=== PATIENT | female | born 1950 | race Caucasian/White ===

== ENCOUNTER 2016-06-07 21:18 | Emergency (ER) | payer OTHER ==
[~2016-06-07] VITALS: Ht 170.2 cm; Wt 74.6 kg
[2016-06-07 21:22] VITALS: TEMP 36.9; Ht 170.2 cm; Wt 74.6 kg
[2016-06-07 22:24] LABS: PARTIAL THROMBOPLASTIN RATIO 1.2; PROTHROMBIN TIME (PATIENT) 10.8 SECONDS (9.0-12.0)
[2016-06-07 22:35] LABS: BUN/CREATININE RATIO 25.7 (10-20); CALCIUM 10.3 mg/dl (8.5-10.1); CREATININE 1.2 mg/dl (0.60-1.20)
[2016-06-07 22:38] LABS: ALB/GLOB RATIO 1.3 (0.9-2)
[2016-06-07 22:48] LABS: HEMATOCRIT 45.1 % (37-47); MEAN CELL VOLUME 91.1 fL (80-100); MEAN CORPUSCULAR HEMOGLOBIN 30.7 pg (25-34); MEAN CORPUSCULAR HGB CONC 33.7 g/dl (32-36); MEAN PLATELET VOLUME 10.2 fL (7.4-10.4); PLATELET COUNT 207 K/uL (130-400); RED BLOOD COUNT 4.95 M/uL (4.2-5.4); WHITE BLOOD COUNT 18.95 K/uL (4.8-10.8)
[2016-06-07] MEDS ORDERED: CHOL2000 PO (23:17)
[2016-06-07] MEDS ORDERED: MULT-506 PO (23:17)
[2016-06-08 00:31] LABS: BASO ABS # 0.19 K/uL (0-0.2); COMPLETE YES; LYMPH ABS # 14.02 K/uL (1.2-3.4)
[2016-06-08 01:23] VITALS: BP 182/95; PULSE 76; O2SAT 97
--- NOTE | 2016-06-08 03:22 | EMERGENCY ROOM VISIT NOTE ---
History Report prepared by Ubaldo: Bacilio Kathleen Under the Supervision of: Dr. Shemar Alonzo M.D. First contact with patient: 22:01 Chief Complaint: ARM PAIN Stated Complaint: LEFT ARM NUMBNESS,DISCOVERED BUBBLE UNDER SKIN History of Present Illness The patient is a 66 year old female who presents to the Emergency Room with complaints of intermittent left arm pain starting earlier today. The patient states that earlier today three of four times it felt like there was a tourniquet squeezing her arm. The patient states that later she felt a bubble on her left arm. She states that she has a Von Willebrand's disease, so she was worried about a blood clot. Additionally, she states that she has been urinating a lot at night recently. Pt denies LOC, headache, fevers, chills, diaphoresis, visual changes, neck pain, chest pain, breathing difficulties, nausea, vomiting, abdominal pain, back pain, melena, hematochezia, urinary symptoms, numbness, weakness, lymphadenopathy, rash, or other complaints. Source of History: patient Onset: earlier today Position: arm (left) Quality: other (squeezing) Timing: intermittent Note: Associated Symptoms: Bubble on her arm Review of Systems See HPI for pertinent positives and negatives. A total of ten systems were reviewed and were otherwise negative. Past Medical & Surgical Medical Problems: (1) Von Willebrand disease Surgical Problems: (1) History of hysterectomy (2) Hx of cholecystectomy (3) S/P tonsillectomy Family History Cancer Diabetes mellitus Heart disease Hypertension Social History Smoking Status: Never Smoker Marital Status: Housing Status: lives with family Occupation Status: retired Current/Historical Medications Scheduled Cholecalciferol (Vitamin D3), 1 CAP PO DAILY Multivitamin (Multivitamin), 1 TAB PO DAILY Allergies Coded Allergies: Cat Dander (Verified Allergy, Intermediate, ASTHMATIC SX, 06/07/16) Penicillins (Verified Allergy, Intermediate, RASH, 06/07/16) Physical Exam Vital Signs Date Time Temp Pulse Resp B/P Pulse Ox O2 Delivery O2 Flow Rate FiO2 06/08/16 01:23 76 16 182/95 97 Room Air 06/07/16 23:14 68 16 196/93 98 Room Air 06/07/16 21:22 36.9 87 16 209/108 98 Room Air Physical Exam GENERAL: Awake, alert, well-appearing, in no distress HENT: Normocephalic, atraumatic. Oropharynx unremarkable. EYES: Normal conjunctiva. Sclera non-icteric. NECK: Supple. No nuchal rigidity. FROM. No JVD. RESPIRATORY: Clear to auscultation. CARDIAC: Regular rate, normal rhythm. Extremities warm and well perfused. Pulses equal. ABDOMEN: Soft, non-distended. No tenderness to palpation. No rebound or guarding. No masses. RECTAL: Deferred. MUSCULOSKELETAL: Chest examination reveals no tenderness. The back is symmetrical on inspection without obvious abnormality. There is no CVA tenderness to palpation. No joint edema. UPPER EXTREMITIES: Round, rubbery 2cm non tender subcutaneous mass in the left forearm on the ulnar aspect. LOWER EXTREMITIES: Calves are equal size bilaterally and non-tender. No edema. No discoloration. NEURO: Normal sensorium. No sensory or motor deficits noted. SKIN: No rash or jaundice noted. Medical Decision & Procedures ER Provider Diagnostic Interpretation: US results as stated below per my review and radiologist interpretation: US VENOUS LEFT UPPER EXTREMITY: No DVT. No masses or adenopathy Radiologist: Varun Ritchie M.D. Laboratory Results 06/07/16 21:50 Red Blood Count 4.95, Mean Corpuscular Volume 91.1, Mean Corpuscular Hemoglobin 30.7, Mean Corpuscular Hemoglobin Concent 33.7, Mean Platelet Volume 10.2 06/07/16 21:50 Test 06/07/16 21:50 White Blood Count 18.95 K/uL (4.8-10.8) Red Blood Count 4.95 M/uL (4.2-5.4) Hemoglobin 15.2 g/dL (12.0-16.0) Hematocrit 45.1 % (37-47) Mean Corpuscular Volume 91.1 fL (80-100) Mean Corpuscular Hemoglobin 30.7 pg (25-34) Mean Corpuscular Hemoglobin Concent 33.7 g/dl (32-36) Platelet Count 207 K/uL (130-400) Mean Platelet Volume 10.2 fL (7.4-10.4) RDW Standard Deviation 45.0 fL (36.4-46.3) RDW Coefficient of Variation 13.7 % (11.5-14.5) Neutrophils % (Manual) 21.0 % Lymphocytes % (Manual) 74.0 % Monocytes % (Manual) 2.0 % Eosinophils % (Manual) 2.0 % Basophils % (Manual) 1.0 % Neutrophils # (Manual) 3.98 K/uL (1.4-6.5) Total Absolute Neutrophils 3.98 K/uL (1.4-6.5) Lymphocytes # (Manual) 14.02 K/uL (1.2-3.4) Total Absolute Lymphocytes 14.02 K/uL (1.2-3.4) Monocytes # (Manual) 0.38 K/uL (0.11-0.59) Eosinophils # (Manual) 0.38 K/uL (0-0.5) Basophils # (Manual) 0.19 K/uL (0-0.2) Prothrombin Time 10.8 SECONDS (9.0-12.0) Prothromb Time International Ratio 1.0 (0.9-1.1) Activated Partial Thromboplast Time 30.1 SECONDS (21.0-31.0) Partial Thromboplastin Ratio 1.2 Anion Gap 9.0 mmol/L (3-11) Est Creatinine Clear Calc Drug Dose 48.0 ml/min Estimated GFR () 54.2 Estimated GFR (Non- 46.7 BUN/Creatinine Ratio 25.7 (10-20) Calcium Level 10.3 mg/dl (8.5-10.1) Total Bilirubin 0.5 mg/dl (0.2-1) Aspartate Amino Transf (AST/SGOT) 25 U/L (15-37) Alanine Aminotransferase (ALT/SGPT) 27 U/L (12-78) Alkaline Phosphatase 106 U/L (45-117) Total Protein 7.8 gm/dl (6.4-8.2) Albumin 4.4 gm/dl (3.4-5.0) Globulin 3.4 gm/dl (2.5-4.0) Albumin/Globulin Ratio 1.3 (0.9-2) Laboratory results reviewed by me ECG Indication: other (Left arm pain) Rate (beats per minute): 69 Rhythm: normal sinus Findings: no acute ischemic change, no ectopy ED Course 2241: The patient was evaluated in room B2. A complete history and physical exam was performed. 0055: I reevaluated the patient and discussed her test results. I discussed he low white blood cell counts and how they are abnormal. I discussed that blood cancer is a probability. 0128: I reevaluated the patient. Discussed results and discharge instructions: She verbalized understanding and agreement. The patient is ready for discharge. Medical Decision Triage Nursing notes reviewed. The patient's presentation and history were concerning for arm discomfort. Etiologies such as DVT, infection, trauma, muscular, lymphedema, idiopathic, as well as others were entertained. Patient was evaluated. On her forearm examination there was a small subcutaneous mass most consistent with a lipoma. The patient had blood work obtained. An ultrasound was performed and was negative. Her CBC revealed a moderate leukocytosis. Lymphocytosis noted on differential. The patient was informed. She notes having an elevated white blood cell count noted last year that has fluctuated. Pathology review is pending. The patient has a history of von Willebrand's. She will need follow-up with hematology. She was provided with the hematology contact information. She will also follow-up with the [facility] primary clinic in [place] for primary care. The patient is going to call back to the emergency department tomorrow for results of the pathology review. If there are significant problems Case management can help the patient get an expedited follow-up to hematology. The patient has been moving and I suspect that her arm discomfort was related to her physical exertion. She has no chest symptoms. ECG was negative. By the evaluation outlined above other emergent etiologies such as those listed in the differential, as well as others, were deemed relatively unlikely. The patient and were informed about the findings as listed above. All questions were answered and they were pleased with the treatment. Return instructions were outlined and the patient was discharged in stable condition. The patient was referred to primary care and hematology for follow-up for a recheck of the current condition. The chart was completed utilizing [employer] Speech voice recognition software. Grammatical errors, random word insertions, pronoun errors, and incomplete sentences are an occasional consequence of this system due to software limitations, ambient noise, and hardware issues. Any formal questions or concerns about the content, text, or information contained within the body of this dictation should be directly addressed to the physician for clarification. Impression Primary Impression: Arm pain, left Additional Impression: Leukocytosis Scribe Attestation The scribe's documentation has been prepared under my direction and personally reviewed by me in its entirety. I confirm that the note above accurately reflects all work, treatment, procedures, and medical decision making performed by me. Departure Information Dispostion Home / Self-Care Referrals No Doctor, Assigned (PCP) Forms HOME CARE DOCUMENTATION FORM, IMPORTANT VISIT INFORMATION Patient Instructions My [facility] Additional Instructions Acetaminophen(Tylenol) may be used for fever or pain. Use 1000mg every six hours as needed. Avoid using more than 4000mg in a 24 hour period. For any muscular pain, warm compresses for 20 minutes at a time four times daily for 2-3 days. Return to the ER immediately for any numbness, tingling, severe pain, extreme swelling in the extremity or as needed. Follow-up with hematology and [facility] primary care as discussed. Call back to the emergency department tomorrow around noon to speak to the charge nurse. The number is [phone]. Discuss your pathology review of the white blood cell count. If there are any significant problems have the charge nurse notify the upper caser and they can assist you with an expedited hematology appointment. Problem Qualifiers Additional Impression: Leukocytosis Leukocytosis type: lymphocytosis Qualified Codes: D72.820 - Lymphocytosis ( symptomatic)
--- NOTE | 2016-06-08 07:08 | DIAGNOSTIC IMAGING REPORT ---
LEFT UPPER EXTREMITY VENOUS DOPPLER HISTORY: left arm swelling COMPARISON STUDY: None. FINDINGS: The left internal jugular vein is patent. There is normal flow within the left subclavian vein. There is normal flow and compressibility within the left axillary, basilic, brachial, radial, ulnar, and visualized cephalic veins. IMPRESSION: No DVT within the left upper extremity. Electronically signed by: Luis Vasquez M.D. 06/08/2016 7:06 AM Dictated Date/Time: 06/08/2016 7:06 AM
== END 2016-06-08 01:34 | disposition home or self-care (01) ==
LOC: C.EDB 21:21
DX: M79.602 Pain in left arm (principal); D72.829 Elevated white blood cell count, unspecified; D68.0 Von Willebrand disease; Z90.710 Acquired absence of both cervix and uterus; Z90.49 Acquired absence of other specified parts of digestive tract; Z90.89 Acquired absence of other organs; Z80.9 Family history of malignant neoplasm, unspecified; Z83.3 Family history of diabetes mellitus; Z82.49 Family history of ischemic heart disease and other diseases of the circulatory system; Z88.0 Allergy status to penicillin

== ENCOUNTER 2020-05-06 12:48 | Observation (INO) ==
[2020-05-06] MEDS ORDERED: GI COCKTAIL ED USE PO ONE (14:52)
[2020-05-06] MEDS ORDERED: ASPIRIN CHEW 324 MG PO STA (14:52)
--- NOTE | 2020-05-06 14:57 | Emergency Department Note ---
Impression & Plan Atypical chest pain, HTN (hypertension), CLL (chronic lymphocytic leukemia), HLD (hyperlipidemia) ED Provider Note NAME: TANYA MILLAN AGE: 70 SEX: F : 1950 ARRIVES VIA: Walk-In INFORMANT: Patient ED PROVIDER(S): Brain Ortega DO CHIEF COMPLAINT: Chest pain HPI: Patient is a 70-year-old female with past medical history of hyperlipidemia, family history of heart disease with her dad dying at early 50s secondary to an OR and mom having CHF who presents the ER for chest pain. She has had some chest pain intermittently with walking the dog. She describes as a tightness in the middle of her chest. She has been weaker and not able to do as much recently. That occurred earlier this morning. She also has some chest tightness at night which started on Saturday. It improves with sitting up. She is unsure if this is related to anything. She questions if it is related to the chili but is not worse after eating chili. Lastly she has a pleuritic chest pain in the middle of her chest which has been present for the past several days as well. Denies any history of diabetes or coronary artery disease or smoking. ROS: See above HPI for pertinent positives & negatives. A total of 10 systems reviewed and were otherwise negative. PAST MEDICAL HISTORY:See Below PAST SURGICAL HISTORY:See Below FAMILY HISTORY:See Below SOCIAL HISTORY:See Below HOME MEDICATIONS:See Below ALLERGIES:See Below VITALS:See Below PHYSICAL EXAMINATION: GENERAL: Sitting up in bed, alert, well appearing, well nourished, no distress, non-toxic EYE EXAM: normal conjunctiva. OROPHARYNX: no exudate, no erythema, lips, buccal mucosa, and tongue normal and mucous membranes are moist NECK: supple, no nuchal rigidity, no adenopathy, non-tender LUNGS: Clear to auscultation. Normal chest wall mechanics HEART: no murmurs, S1 normal and S2 normal ABDOMEN: abdomen soft, non-tender, normo-active bowel sounds, no masses, no rebound or guarding. UPPER EXTREMITIES: upper extremities are grossly normal. LOWER EXTREMITIES: No pitting edema. Calves are equal bilaterally NEURO EXAM: Normal sensorium, cranial nerves II-XII grossly intact, normal speech, no gross weakness of arms, no gross weakness of legs. MEDICAL DECISION MAKING: Patient is a 70-year-old female with a past medical history of hyperlipidemia and a family history with her father dying at the age of 54 from an OR who presents the ER for several different types of chest pain. IV was established blood work was obtained. She was significant hypertensive with systolics in the 190s. Labs were obtained and showed a leukocytosis of 24,000 consistent with previous likely CLL. INR unremarkable. D-dimer was negative and will not be pursued any further. BMP with LFTs bilirubin are unremarkable. Troponin was negative. Covid was negative. Chest x-ray unremarkable. Patient did have some burning which did appear to be consistent with GERD and was given a GI cocktail. She was given aspirin but declined secondary to von Willebrand's. With this intermittent exertional pain that she gets when walking the dog for the past week combination with her elevated blood pressure did recommend observation. She was given a dose of labetalol in the ER. Pressure came down to 160s. Triage Nursing notes reviewed. Prior medical records reviewed Vital Signs: reviewed and remarkable for no significant abnormalities Differential diagnosis: Differential diagnoses includes but is not limited to acute coronary syndrome, myocardial infarction, pericarditis, pulmonary embolus, aortic dissection, pneumonia, pneumothorax, musculoskeletal, shingles, esophageal. ER treatment provided: See below Diagnostics interpreted by me: ECG: Sinus rhythm rate 71 Normal axis No PVCs Nonspecific ST wave changes in the inferior and lateral leads QTC 441 Cardiac Monitoring: An order was placed for continuous cardiac monitoring. The monitor shows a rate of 70 with sinus rhythm. Laboratory studies: As stated above and show below. Imaging studies: Portable AP upright 1 view of the chest shows no focal infiltrate or pneumothorax Consultation(s): Discussed with the hospitalist for further evaluation ED COURSE: Procedures: none Critical Care: None Past Med/Surg History Medical History (Updated 05/06/20 @ 20:11 by Brain Ortega DO) CLL (chronic lymphocytic leukemia) HLD (hyperlipidemia) HTN (hypertension) Osteoporosis Von Willebrand disease per Dr. Swartz: Treatment recommendations for future bleeding: - DDAVP 0.3 microgram/kilogram over 30 minutes (she had received it the past with good response). - Amicar 2.5 g every 6 hourly (Can be added for oral bleed) - Humate P 40-50 IU/kg IV. Surgical History (Updated 05/06/20 @ 18:31 by Liana Galarza PA-C) History of x2 History of cholecystectomy History of left breast biopsy History of tonsillectomy History of total abdominal hysterectomy and bilateral salpingo-oophorectomy History of wisdom tooth extraction Family History Father , 53- fatal OR Myocardial infarction Mother , 93 CHF (congestive heart failure) Diabetes Daughter Von Willebrand disease Son Von Willebrand disease Social History (Updated 05/06/20 @ 18:32 by Liana Galarza PA-C) Smoking Status: Never smoker Hx Alcohol Use: No Hx Substance Use: No Preferred Language: Portuguese marital status: Current Living Situation: Spouse and Family Feels Safe at Home: Yes Allergies Allergies Allergy/AdvReac Type Severity Reaction Status Date / Time cat dander Allergy Intermediate ASTHMATIC Verified 05/06/20 15:10 SX Penicillins Allergy Intermediate RASH Verified 05/06/20 15:10 Home Meds Home Medications Medication Instructions Recorded Confirmed [id number] 1 tab PO DAILY 06/26/18 05/06/20 [Centrum Silver Women] alendronate 70 mg PO TH 06/27/18 05/06/20 atorvastatin 10 mg PO HS 06/27/18 05/06/20 coenzyme Q10 [CoQ-10] 100 mg PO DAILY 06/27/18 05/06/20 acetaminophen [Tylenol Extra 500 mg PO Q6H PRN 05/06/20 05/06/20 Strength] biotin 10 mg PO DAILY 05/06/20 05/06/20 calcium carbonate-vitamin D3 1 cap PO DAILY 05/06/20 05/06/20 [Calcium 600 + D(3)] Results & Data (ED) Vital Signs Vital Signs - 24 hr 05/06/20 12:55 05/06/20 14:49 05/06/20 15:37 Temperature 36.5 C Temperature Source Oral Pulse Rate 70 73 Pulse Rate [Apical] Pulse Rate from SpO2 Sensor 74 Pulse Rhythm [Apical] Pulse Strength [Apical] Respiratory Rate 16 16 Respiratory Effort / Characteristics Respiratory Depth Respiratory Pattern Blood Pressure 191/93 H 183/84 H Blood Pressure [Left Arm] Blood Pressure Mean 125 110 Blood Pressure Mean [Left Arm] Pulse Oximetry 99 99 99 Oxygen Delivery Method Room Air Room Air Sepsis Recent Fever Within 48 Hours No Sepsis New/Unexplained Change in Mental Status N/A Sepsis Action Taken by Nursing No Action Required 05/06/20 15:41 05/06/20 15:45 05/06/20 16:00 Temperature Temperature Source Pulse Rate 68 70 Pulse Rate [Apical] 74 Pulse Rate from SpO2 Sensor 69 70 Pulse Rhythm [Apical] Regular Pulse Strength [Apical] Normal Respiratory Rate 20 18 22 Respiratory Effort / Characteristics Non-Labored Respiratory Depth Normal Respiratory Pattern Regular Blood Pressure 164/89 H Blood Pressure [Left Arm] 183/84 H Blood Pressure Mean 120 Blood Pressure Mean [Left Arm] 117 Pulse Oximetry 98 97 100 Oxygen Delivery Method Room Air Sepsis Recent Fever Within 48 Hours Sepsis New/Unexplained Change in Mental Status Sepsis Action Taken by Nursing 05/06/20 16:30 05/06/20 16:45 05/06/20 17:00 Temperature Temperature Source Pulse Rate 74 82 69 Pulse Rate [Apical] Pulse Rate from SpO2 Sensor 72 82 70 Pulse Rhythm [Apical] Pulse Strength [Apical] Respiratory Rate 12 19 15 Respiratory Effort / Characteristics Respiratory Depth Respiratory Pattern Blood Pressure 171/89 H 181/92 H Blood Pressure [Left Arm] Blood Pressure Mean 134 149 Blood Pressure Mean [Left Arm] Pulse Oximetry 98 99 98 Oxygen Delivery Method Sepsis Recent Fever Within 48 Hours Sepsis New/Unexplained Change in Mental Status Sepsis Action Taken by Nursing 05/06/20 17:14 05/06/20 17:16 05/06/20 17:30 Temperature Temperature Source Pulse Rate 68 70 69 Pulse Rate [Apical] Pulse Rate from SpO2 Sensor 68 70 68 Pulse Rhythm [Apical] Pulse Strength [Apical] Respiratory Rate 20 14 15 Respiratory Effort / Characteristics Respiratory Depth Respiratory Pattern Blood Pressure 142/78 H Blood Pressure [Left Arm] Blood Pressure Mean 102 Blood Pressure Mean [Left Arm] Pulse Oximetry 97 98 96 Oxygen Delivery Method Sepsis Recent Fever Within 48 Hours Sepsis New/Unexplained Change in Mental Status Sepsis Action Taken by Nursing 05/06/20 18:00 05/06/20 18:30 05/06/20 19:00 Temperature Temperature Source Pulse Rate 75 71 74 Pulse Rate [Apical] Pulse Rate from SpO2 Sensor 75 71 75 Pulse Rhythm [Apical] Pulse Strength [Apical] Respiratory Rate 16 14 18 Respiratory Effort / Characteristics Respiratory Depth Respiratory Pattern Blood Pressure 156/84 H 145/77 H 164/87 H Blood Pressure [Left Arm] Blood Pressure Mean 114 102 138 Blood Pressure Mean [Left Arm] Pulse Oximetry 97 98 98 Oxygen Delivery Method Sepsis Recent Fever Within 48 Hours Sepsis New/Unexplained Change in Mental Status Sepsis Action Taken by Nursing 05/06/20 19:30 Temperature Temperature Source Pulse Rate 69 Pulse Rate [Apical] Pulse Rate from SpO2 Sensor 71 Pulse Rhythm [Apical] Pulse Strength [Apical] Respiratory Rate 13 Respiratory Effort / Characteristics Respiratory Depth Respiratory Pattern Blood Pressure 160/78 H Blood Pressure [Left Arm] Blood Pressure Mean 115 Blood Pressure Mean [Left Arm] Pulse Oximetry 98 Oxygen Delivery Method Sepsis Recent Fever Within 48 Hours Sepsis New/Unexplained Change in Mental Status Sepsis Action Taken by Nursing Laboratory Data Result diagrams: 05/06/20 15:10 05/06/20 15:10 Lab Results 05/06/20 05/06/20 05/06/20 Range/Units 15:10 15:10 15:10 WBC 24.64 H (4.8-10.8) K/uL RBC 5.06 (4.2-5.4) M/uL Hgb 15.6 (12.0-16.0) g/dL Hct 47.6 H (37-47) % MCV 94.1 (80-100) fL MCH 30.8 (25-34) pg MCHC 32.8 (32-36) g/dL RDW Std Deviation 46.6 H (36.4-46.3) fL RDW Coeff of Michael 13.6 (11.5-14.5) % Plt Count 184 (130-400) K/uL MPV 10.1 (7.4-10.4) fL Immature Gran % (Auto) 0.1 % Neut % (Auto) 11.4 % Lymph % (Auto) 85.6 % [place] % (Auto) 2.3 % Eos % (Auto) 0.5 % Baso % (Auto) 0.1 % Neut # (Auto) 2.80 (1.4-6.5) K/uL Lymph # (Auto) 21.10 H (1.2-3.4) K/uL [place] # (Auto) 0.57 (0.11-0.59) K/uL Eos # (Auto) 0.13 (0-0.5) K/uL Baso # (Auto) 0.02 (0-0.2) K/uL Immature Gran # (Auto) 0.02 (0.00-0.02) K/uL Smudge Cells Present PT 11.2 (9.0-12.0) Seconds INR 1.1 (0.9-1.1) APTT 29.2 (21.0-31.0) Seconds PTT Ratio 1.0 D-Dimer 500 (0-500) ug/L FEU Sodium 142 (136-145) mmol/L Potassium 4.3 (3.5-5.1) mmol/L Chloride 107 (98-107) mmol/L Carbon Dioxide 29 (21-32) mmol/L Anion Gap 6.0 (3-11) BUN 23 H (7-18) mg/dl Creatinine 0.81 (0.6-1.2) mg/dl Est Cr Clr Drug Dosing 61.9 ml/min Est GFR ( Amer) 84.7 Est GFR (Non-Af Amer) 73.1 BUN/Creatinine Ratio 28.5 H (10-20) Glucose 91 (70-99) mg/dl Calcium 10.1 (8.5-10.1) mg/dl Total Bilirubin 0.9 (0.2-1) mg/dl AST 26 (15-37) U/L ALT 32 (12-78) U/L Alkaline Phosphatase 100 (45-117) U/L Troponin I < 0.015 (0-0.045) ng/ml Total Protein 7.3 (6.4-8.2) gm/dl Albumin 4.2 (3.4-5.0) gm/dl Globulin 3.1 (2.5-4.0) gm/dl Albumin/Globulin Ratio 1.3 (0.9-2) SARS-CoV-2 Ag (Rapid) (Negative) 05/06/20 Range/Units 17:24 WBC (4.8-10.8) K/uL RBC (4.2-5.4) M/uL Hgb (12.0-16.0) g/dL Hct (37-47) % MCV (80-100) fL MCH (25-34) pg MCHC (32-36) g/dL RDW Std Deviation (36.4-46.3) fL RDW Coeff of Michael (11.5-14.5) % Plt Count (130-400) K/uL MPV (7.4-10.4) fL Immature Gran % (Auto) % Neut % (Auto) % Lymph % (Auto) % [place] % (Auto) % Eos % (Auto) % Baso % (Auto) % Neut # (Auto) (1.4-6.5) K/uL Lymph # (Auto) (1.2-3.4) K/uL [place] # (Auto) (0.11-0.59) K/uL Eos # (Auto) (0-0.5) K/uL Baso # (Auto) (0-0.2) K/uL Immature Gran # (Auto) (0.00-0.02) K/uL Smudge Cells PT (9.0-12.0) Seconds INR (0.9-1.1) APTT (21.0-31.0) Seconds PTT Ratio D-Dimer (0-500) ug/L FEU Sodium (136-145) mmol/L Potassium (3.5-5.1) mmol/L Chloride (98-107) mmol/L Carbon Dioxide (21-32) mmol/L Anion Gap (3-11) BUN (7-18) mg/dl Creatinine (0.6-1.2) mg/dl Est Cr Clr Drug Dosing ml/min Est GFR ( Amer) Est GFR (Non-Af Amer) BUN/Creatinine Ratio (10-20) Glucose (70-99) mg/dl Calcium (8.5-10.1) mg/dl Total Bilirubin (0.2-1) mg/dl AST (15-37) U/L ALT (12-78) U/L Alkaline Phosphatase (45-117) U/L Troponin I (0-0.045) ng/ml Total Protein (6.4-8.2) gm/dl Albumin (3.4-5.0) gm/dl Globulin (2.5-4.0) gm/dl Albumin/Globulin Ratio (0.9-2) SARS-CoV-2 Ag (Rapid) Negative (Negative) Administered Medications Discontinued Medications Al Hydrox/Mg Hydrox/Simethicone (Gi Cocktail Ed Use) 1 dose PO ONE ONE Stop: 05/06/20 14:53 Last Admin: 05/06/20 15:33 Dose: 1 dose Documented by: [id number] Aspirin (Aspirin Chew 324 Mg) 324 mg PO NOW STA Stop: 05/06/20 14:53 Last Admin: 05/06/20 15:39 Dose: Not Given Documented by: [id number] Labetalol HCl (Labetalol Hcl Iv 5 Mg/Ml 20ml) 10 mg IV NOW STA Stop: 05/06/20 16:52 Last Admin: 05/06/20 17:00 Dose: 10 mg Documented by: [id number] Cosigned by: [id number] Discharge Plan Visit Data Chief Complaint: Cardiac Assessment Stated Complaint: CHEST PAIN LAST NIGHT ED Provider: Brain Ortega Discharge Problem: Atypical chest pain, HTN (hypertension), CLL (chronic lymphocytic leukemia), HLD (hyperlipidemia) Discharge Instructions Interventions: ED Discharge Assessment Last Done: 05/06/20 20:07 Forms Stand Alone Forms: [facility] Prescriptions Prescriptions: No Action Centrum Silver Women 8 mg iron-400 mcg-300 mcg Tablet 1 tab PO DAILY RF: 0 alendronate 70 mg tablet 70 mg PO TH RF: 0 atorvastatin 10 mg tablet 10 mg PO HS RF: 0 coenzyme Q10 [CoQ-10] 100 mg Capsule 100 mg PO DAILY RF: 0 acetaminophen [Tylenol Extra Strength] 500 mg Tablet 500 mg PO Q6H PRN (Reason: Pain) RF: 0 Calcium 600 + D(3) 600 mg calcium- 200 unit Capsule 1 cap PO DAILY RF: 0 biotin 10 mg Tablet 10 mg PO DAILY RF: 0 Referrals Referrals: Maria Ines Lentz DO [Primary Care Provider] - Discharge Problem: HTN (hypertension) Qualifiers: Hypertension type: unspecified Qualified Code(s): I10 - Essential (primary) hypertension HLD (hyperlipidemia) Qualifiers: Hyperlipidemia type: unspecified Qualified Code(s): E78.5 - Hyperlipidemia, unspecified
[2020-05-06 15:41] LABS: Alanine Aminotransferase 32 U/L (12-78); Albumin Level 4.2 gm/dl (3.4-5.0); Aspartate Aminotransferase 26 U/L (15-37); BUN Creatinine Ratio 28.5 (10-20); Blood Urea Nitrogen 23 mg/dl (7-18); Calcium 10.1 mg/dl (8.5-10.1); Carbon Dioxide 29 mmol/L (21-32); Chloride 107 mmol/L (98-107); Creatinine Clr Calc Pharmacy 61.9 ml/min; Est GFR (African American) 84.7; Est GFR (Non-African American) 73.1; Glucose 91 mg/dl (70-99); Potassium 4.3 mmol/L (3.5-5.1); Sodium 142 mmol/L (136-145)
[2020-05-06 15:44] LABS: Hematocrit (blood only) 47.6 % (37-47); Hemoglobin 15.6 g/dL (12.0-16.0); Mean Corpuscular Hemoglobin 30.8 pg (25-34); Mean Corpuscular Hgb Conc 32.8 g/dL (32-36); Mean Corpuscular Volume 94.1 fL (80-100); Mean Platelet Volume 10.1 fL (7.4-10.4); Platelet Count 184 K/uL (130-400); RDW Coefficient of Variation 13.6 % (11.5-14.5); RDW Standard Deviation 46.6 fL (36.4-46.3); Red Blood Count 5.06 M/uL (4.2-5.4); White Blood Count 24.64 K/uL (4.8-10.8)
[2020-05-06 15:46] LABS: Albumin Globulin Ratio 1.3 (0.9-2); Alkaline Phosphatase 100 U/L (45-117); Bilirubin,Total 0.9 mg/dl (0.2-1); Globulin 3.1 gm/dl (2.5-4.0); Total Protein 7.3 gm/dl (6.4-8.2); Troponin I < 0.015 ng/ml (0-0.045)
[2020-05-06 15:48] LABS: D Dimer 500 ug/L FEU (0-500); INR 1.1 (0.9-1.1); Partial Thromboplastin Time 29.2 Seconds (21.0-31.0); Prothrombin Time 11.2 Seconds (9.0-12.0)
[2020-05-06 16:02] LABS: Basophils # (auto) 0.02 K/uL (0-0.2); Basophils % (auto) 0.1 %; Eosinophils # (auto) 0.13 K/uL (0-0.5); Eosinophils % (auto) 0.5 %; Immature Granulocytes # (auto) 0.02 K/uL (0.00-0.02); Immature Granulocytes % (auto) 0.1 %; Lymphocytes % (auto) 85.6 %; Monocytes # (auto) 0.57 K/uL (0.11-0.59); Monocytes % (auto) 2.3 %; Neutrophils % (auto) 11.4 %; Smudge Cells Present
--- NOTE | 2020-05-06 16:39 | XRay Report ---
SINGLE VIEW CHEST CLINICAL HISTORY: Atypical chest pain. FINDINGS: An AP, portable, upright chest radiograph is compared to study dated 08/13/2018. The cardiom ediastinal silhouette is unremarkable noting atherosclerotic calcification of the thoracic aorta. The re is mild bibasilar atelectasis. No airspace consolidation or large pleural effusion is identified. No pneumothorax is seen. The skeletal structures are osteopenic. The bony thorax is grossly intact. C holecystectomy clips are seen in the right upper quadrant. IMPRESSION: No acute cardiopulmonary abnormality. ACT 112: Negative or not required by law. Electronically signed by: Tyler Almanza M.D. 05/06/2020 4:37 PM
[2020-05-06] MEDS ORDERED: LABETALOL HCL IV 5 MG/ML 20ML IV STA (16:51)
--- NOTE | 2020-05-06 18:44 | History & Physical Report ---
Date of Service May 06, 2020 Assessment & Plan (1) Atypical chest pain: This is a 70-year-old female who has significant past medical history CLL, von Willebrand disease, HTN, HLD and osteoporosis who presents to ED secondary to off-and-on chest pain x1 week. Pt with risk factors including HLD, possible uncontrolled HTN as outpt, strong FH with fatal MS of father at age 53, age Chest pain sounds likely GI related, GERD, hiatal hernia, gastritis or possible stress induces; however given risk factors she does warrant further investigation to rule out cardiac etiology admit to tele cycle troponin, ecg obtain echocardiogram would benefit from NST and stress echo - may need to be arranged as outpt if unable to do over weekend tx SBP > 180 with labetolol, if continues to run elevated consider adding low dose hctz Trial Pepcid 20mg bid - she did have improvement with GI cocktail dose not appear to be MSK component consult cardiology (2) Anxiety as acute reaction to exceptional stress: pt with increased anxiety, feels she is having difficulty controlling it discussed different treatment options and she wishes to pursue counseling friend is undergoing multiple surgeries and now chemotherapy will need follow up outpt with psychologist as well as Dr. Lau for further management (3) HTN (hypertension): BP initially elevated, improved with 10 mg of IV labetalol Labetalol as needed for SBP greater than 180 Previously has been on 5 mg of lisinopril as outpatient but discontinued secondary to hypotension Reviewing patient's outpatient vital signs for the past 3 to 4 years blood pressure has fluctuated from 120s to 170s, continue to monitor, may benefit from low-dose HCTZ (4) CLL (chronic lymphocytic leukemia): Follows Dr. Swartz, [place] ct stable (5) HLD (hyperlipidemia): continue statin fasting lipid panel in a.m. (6) Von Willebrand disease: follows Dr. Swartz, hx of significant bleeding post operatively refer to PMH for Dr. Swartz treatment recommendation in event severe bleeding were to occur SCDS/TEDS - given hx of von willebrand Disposition: admit to [facility] tele Follow up: PCP Dr. Lentz upon discharge - pt appears to have uncontrolled anxiety and would benefit from counseling as well as possible SSRI, discussed with patient who wishes to be set up with counseling and discuss further with Dr. Lentz regarding other therapies Pt was seen and examined in collaboration with Dr. Monzon, please see addendum History of Present Illness Chief Complaint: Off and on Chest Pain x 1 week. Primary Care Provider: Maria Ines Lentz, This is a 70-year-old female who has significant past medical history CLL, von Willebrand disease, HTN, HLD and osteoporosis who presents to ED secondary to off-and-on chest pain x1 week. She was seen and evaluated in clinic today and due to complaint of chest pain as well as known family history of father with fatal MS in 50s she was referred to ED for further evaluation. She states she has been undergoing a lot of stress secondary to her friend undergoing numerous surgeries and now chemotherapy at [facility] as well as stress with the coronavirus. Her first instance of chest pain was Saturday evening when she was lying in bed, pain was substernal, nonradiating, described as aching, improved with propping up head of bed, made worse with deep breathing, and lasted a few hours. When she woke up the next day her pain had resolved and did not return for approximately 2 to 3 days. She has noted over the past week when walking he r dog she would get more short of breath than usual, but attributed this to the cold weather. She also admits to a subtle substernal chest discomfort with walking as well, but would resolve immediately when sitting down. Yesterday she was outside shoveling a bit and felt more short of breath but no actual chest pain. Did not shovel much as she has [facility]ast testing for allergies on back and was told not to sweat. She states last evening at approximately 9 PM when she was watching TV reclined back in her recliner the chest pain returned. It was the same chest pain and stayed for several hours. Due to return of chest pain she was seen and evaluated by PCP today. She is very concerned because her father of a fatal MS on and she found him . "I do not want my to find the same." She denies any other recent illness, fever, chills, sweats, lightheadedness, dizziness, syncope, shortness of breath at rest, palpitations, nausea, diaphoresis, cough, hemoptysis, diarrhea, abdominal pain, change in bowel or urinary habits. She notes over the past several weeks she has had significant increase in her anxiety and she wishes she could just, "grab a hold of it." She denies any prior history of heart disease. She does have history of high blood pressure and previously had been on lisinopril, but this dropped her blood pressure too low so she stopped it. She attributes her high blood pressure to whitecoat syndrome. Of significance patient does have history of von Willebrand disease. Her son and daughter have it as well. She has had significant bleeding issues with previous surgeries and follows with Dr. Swartz in regards to her von Willebrand and CLL. If she were to require surgery she states she will need to go to tertiary facility that have DDAVP and Humate-P. In ED patient made hemodynamically stable, although she was significantly hypertensive. This improved to 142/78 with 10 mg of IV labetalol. Her CBC was notable for leukocytosis, stable at 24.64k, with predominant lymphocytosis, BUN 23, creatinine 0.81, troponin WNL, D-dimer WNL. Chest x-ray negative for acute abnormality. Covid screen negative. She did receive GI cocktail which improved her symptoms immensely. Allergies Allergy/AdvReac Type Severity Reaction Status Date / Time cat dander Allergy Intermediate ASTHMATIC Verified 05/06/20 15:10 SX Penicillins Allergy Intermediate RASH Verified 05/06/20 15:10 Home Medications Medication Instructions Recorded Confirmed Type Centrum Silver Women 1 tab PO DAILY 06/26/18 05/06/20 History alendronate 70 mg PO TH 06/27/18 05/06/20 History atorvastatin 10 mg PO HS 06/27/18 05/06/20 History coenzyme Q10 [CoQ-10] 100 mg PO DAILY 06/27/18 05/06/20 History Calcium 600 + D(3) 1 cap PO DAILY 05/06/20 05/06/20 History acetaminophen [Tylenol Extra 500 mg PO Q6H PRN 05/06/20 05/06/20 History Strength] biotin 10 mg PO DAILY 05/06/20 05/06/20 History amlodipine [Norvasc] 2.5 mg PO QAM #30 tab 05/07/20 Rx famotidine 20 mg PO BID #60 tab 05/07/20 Rx Past Med/Surg History Medical History CLL (chronic lymphocytic leukemia) HLD (hyperlipidemia) HTN (hypertension) Osteoporosis Von Willebrand disease per Dr. Swartz: Treatment recommendations for future bleeding: - DDAVP 0.3 microgram/kilogram over 30 minutes (she had received it the past with good response). - Amicar 2.5 g every 6 hourly (Can be added for oral bleed) - Humate P 40-50 IU/kg IV. Surgical History History of x2 History of cholecystectomy History of left breast biopsy History of tonsillectomy History of total abdominal hysterectomy and bilateral salpingo-oophorectomy History of wisdom tooth extraction Family History Father , 53- fatal MS Myocardial infarction Mother , 93 CHF (congestive heart failure) Diabetes Daughter Von Willebrand disease Son Von Willebrand disease Social History Smoking Status: Never smoker Second Hand Exposure: No; Hx Alcohol Use: No Hx Substance Use: No Preferred Language: Urdu Communication Ability: Effective Director Of Physical Therapy Required: No Beliefs That Will Affect Care: None marital status: Current Living Situation: Family Feels Safe at Home: Yes Assistive Devices: Glasses Review of Systems Review of Systems: All systems reviewed & are unremarkable except as noted in HPI & below Physical Exam Physical Exam: Constitutional: WD/WN, vitals as above, NAD, sitting up in bed, pleasant, conversing easily Head: Normocephalic, Atraumatic Eyes: PERRL, conjunctivae normal, anicteric sclerae ENMT: external ear and nose normal, oropharynx normal Neck: trachea midline, no thyromegaly normal visual inspection Respiratory: normal respiratory effort, lungs clear to auscultation, no wheeze, rales, rhonchi. Normal insp/exp effort, no accessory muscle use Cardiovascular: RRR, 2/6 CHINEDU noted RUSB, no edema Vessels: no JVD or carotid bruit Chest: normal inspection of chest Abdomen: normal bowel sounds, soft, nontender, no hepatosplenomegaly Musculoskeletal: no cyanosis or clubbing, extremities motor strength 5/5 Skin: no rashes, warm and dry normal turgor Neurologic: PERRL, EOMI, accommodation nl, no face palsy, no dysarthria CN's II-XI intact bilaterally and moves all extremities Psychiatric: A+Ox3, euthymic affect Lymphatic: no cervical or axillary lymphadenopathy : deferred Results & Data Results & Data ([facility]) Vital Signs (Past 12 Hours) Vital Signs Temp Pulse Pulse Resp BP BP Pulse Ox 05/06/20 17:30 69 15 96 05/06/20 17:16 70 14 98 05/06/20 17:14 68 20 142/78 H 97 05/06/20 17:00 69 15 181/92 H 98 05/06/20 16:45 82 19 99 05/06/20 16:30 74 12 171/89 H 98 05/06/20 16:00 70 22 164/89 H 100 05/06/20 15:45 74 18 183/84 H 97 05/06/20 15:41 68 20 98 05/06/20 15:37 73 16 183/84 H 99 05/06/20 14:49 99 05/06/20 12:55 36.5 C 70 16 191/93 H 99 Laboratory Results Short CBC 05/06/20 Range/Units 15:10 WBC 24.64 H (4.8-10.8) K/uL Hgb 15.6 (12.0-16.0) g/dL Hct 47.6 H (37-47) % Plt Count 184 (130-400) K/uL BMP 05/06/20 15:10 Sodium 142 Potassium 4.3 Chloride 107 Carbon Dioxide 29 BUN 23 H Creatinine 0.81 Glucose 91 Calcium 10.1 Cardiac Enzymes 05/06/20 Range/Units 15:10 Troponin I < 0.015 (0-0.045) ng/ml Liver Function 05/06/20 Range/Units 15:10 Total Bilirubin 0.9 (0.2-1) mg/dl AST 26 (15-37) U/L ALT 32 (12-78) U/L Alkaline Phosphatase 100 (45-117) U/L Albumin 4.2 (3.4-5.0) gm/dl Diagnostic Findings CXR: IMPRESSION: No acute cardiopulmonary abnormality. Medications Administered Discontinued Medications Al Hydrox/Mg Hydrox/Simethicone (Gi Cocktail Ed Use) 1 dose PO ONE ONE Stop: 05/06/20 14:53 Last Admin: 05/06/20 15:33 Dose: 1 dose Documented by: [id number] Aspirin (Aspirin Chew 324 Mg) 324 mg PO NOW STA Stop: 05/06/20 14:53 Last Admin: 05/06/20 15:39 Dose: Not Given Documented by: [id number] Labetalol HCl (Labetalol Hcl Iv 5 Mg/Ml 20ml) 10 mg IV NOW STA Stop: 05/06/20 16:52 Last Admin: 05/06/20 17:00 Dose: 10 mg Documented by: [id number] Cosigned by: [id number] ECG Rate (beats per minute): 71 Rhythm: normal sinus Code Status & VTE Plan Code Status Full Code VTE Prophylaxis Plan VTE Prophylaxis will be ordered: Yes Reason for no VTE drug order: Contraindicated (von willebrand disease) Supervising Physician Co-Signing Physician Notes Pt was seen and examined. Agreed with Michell DYSON exam, assessment and plan. 70-year-old female with past medical history CLL, von Willebrand disease, HTN, HLD and osteoporosis presented to the ED with chest pain. Pt said that she has been having intermittent chest pain. She said last Saturday while lying down she developed a substernal chest pain. She described the pain as achy, non radiating. She said that pain worsening with deep breathing. She said in the last few days when she walked the dog she developed chest discomfort associated with SOB. She said that she thought it was due to the cold weather. She said that she was shovel the snow yesterday when she developed SOB. She said that she is under a lot of stress lately. Pt said that her dad with heart attack. Denies fever, chills, sweats, lightheadedness, dizziness, syncope, shortness of breath at rest, palpitations, nausea, diaphoresis, cough, hemoptysis, diarrhea, abdominal pain. No chest pain currently. Troponin on admission normal. EKG showe d no acute ischemic changes. Will follow troponin. Will get an echo. Pt said that she used to take Zantac for GERD, will try it. Cardiology consult. Will make NPO after midnight for possible stress test in am. Will monitor closely in tele. MD Na
[2020-05-06] MEDS ORDERED: ALUMINUM/MAGNESIUM SUSP 30 ML UDC PO PRN (21:39)
[2020-05-06] MEDS ORDERED: ACETAMINOPHEN 325 MG TAB PO PRN (21:39)
[2020-05-06] MEDS ORDERED: MAGNESIUM HYDROXIDE SUSP 30 ML UDC PO PRN (21:39)
[2020-05-06] MEDS ORDERED: ACETAMINOPHEN 500 MG TAB PO PRN (21:39)
[2020-05-06] MEDS ORDERED: ONDANSETRON INJ 2 MG/ML 2 ML VIAL IV PRN (21:39)
[2020-05-06] MEDS ORDERED: LABETALOL HCL IV 5 MG/ML 20ML IV PRN (21:39)
[2020-05-06] MEDS ORDERED: ATORVASTATIN 10 MG TAB PO SCH (21:39)
[2020-05-06] MEDS ORDERED: POLYETHYLENE (MIRALAX) 17 GM PACK PO PRN (21:39)
[2020-05-06] MEDS: FAMOTIDINE 20 MG TAB PO SCH (22:52)
[2020-05-07 03:01] LABS: Hematocrit (blood only) 43.8 % (37-47); Hemoglobin 14.4 g/dL (12.0-16.0); Mean Corpuscular Hemoglobin 30.6 pg (25-34); Mean Corpuscular Hgb Conc 32.9 g/dL (32-36); Mean Platelet Volume 9.9 fL (7.4-10.4); Platelet Count 185 K/uL (130-400); RDW Coefficient of Variation 13.5 % (11.5-14.5); RDW Standard Deviation 46.3 fL (36.4-46.3); Red Blood Count 4.71 M/uL (4.2-5.4); White Blood Count 22.88 K/uL (4.8-10.8)
[2020-05-07 03:17] LABS: BUN Creatinine Ratio 28.2 (10-20); Calcium 8.9 mg/dl (8.5-10.1); Est GFR (Non-African American) 82.9; Magnesium 2.3 mg/dl (1.8-2.4); Potassium 4.2 mmol/L (3.5-5.1)
[2020-05-07 06:05] LABS: Estimated Average Glucose 108 mg/dl; Hemoglobin A1C 5.4 % (4.5-5.6)
--- NOTE | 2020-05-07 06:26 | Electrocardiogram Report ---
Test Reason : Blood Pressure : / mmHG Vent. Rate : 071 BPM Atrial Rate : 071 BPM P-R Int : 142 ms QRS Dur : 090 ms QT Int : 406 ms P-R-T Axes : 088 063 049 degrees QTc Int : 441 ms Normal sinus rhythm Possible Left atrial enlargement Nonspecific ST abnormality Abnormal ECG When compared with ECG of 13-AUG-2018 04:25, No significant change was found Confirmed by Haroon Nix ([id number]) on 05/07/2020 6:26:19 AM Referred By: SELF Confirmed By:Haroon Nix
[2020-05-07] MEDS: FAMOTIDINE 20 MG TAB PO SCH (08:46)
[2020-05-07] MEDS ORDERED: NON-FORMULARY MEDICATION (Coenzyme Q10 [Coq-10] 100 mg Capsule) PO SCH (09:00)
[2020-05-07] MEDS ORDERED: CEROVITE ADV FORMULA TAB PO SCH (09:00)
[2020-05-07] MEDS ORDERED: CALCIUM 600MG + VIT D 400 IU TAB PO SCH (09:00)
[2020-05-07] MEDS ORDERED: NON-FORMULARY MEDICATION (Biotin 10 mg Tablet) PO SCH (09:00)
--- NOTE | 2020-05-07 10:47 | Electrocardiogram Report ---
Test Reason : Blood Pressure : / mmHG Vent. Rate : 062 BPM Atrial Rate : 062 BPM P-R Int : 148 ms QRS Dur : 092 ms QT Int : 438 ms P-R-T Axes : 082 070 046 degrees QTc Int : 444 ms Normal sinus rhythm Normal ECG When compared with ECG of 06-MAY-2020 12:55, No significant change was found Confirmed by Ivan Silver ([id number]) on 05/07/2020 10:47:00 AM Referred By: REFERRED SELF Confirmed By:Nitesh Silver
--- NOTE | 2020-05-07 11:44 | Cardiology Consultation ---
Date of Consultation May 07, 2020 Assessment & Plan (1) Atypical chest pain: Serial EKG tracings been negative, x3. The patient underwent an exercise stress echocardiogram exercising to a moderately high workload, into stage II of the Frankie protocol, with no chest discomfort reproduced. The test was terminated due to fatigue with an appropriate degree of shortness of breath especially given the fact that she wore a mask for the test. EKG response during exercise was normal. Very minimal local ST changes noted late in the post stress recovery interval, with no associated symptoms, and the echocardiographic response was normal. I would summarize that the stress test is reassuring compatible with a low likelihood of underlying hemodynamically significant coronary heart disease. Would recommend discharge with outpatient treatment with Pepcid GI etiology. (2) HLD (hyperlipidemia): LDL cholesterol is well controlled at 93 mg/dL, continue prior to hospital treatment with atorvastatin 10 mg daily. (3) Aortic valve sclerosis: Mild aortic valve sclerosis without stenosis noted on resting echo. Recommend repeat resting echo at interval of 1 to 2 years. (4) HTN (hypertension): The patient has a history of mild hypertension. She had been prescribed lisinopril 5 mg daily in August 2018 but did not tolerate it due to fatigue related side effects. Her systolic blood pressure readings have been in the 140s to 160s persistently while observed in the hospital overnight. Borderline hypertensive blood pressure response was noted on exercise stress test. Recommend adding amlodipine 2.5 mg daily. DISPOSITION: Patient stable from a cardiac perspective to be discharged with plans for outpatient follow-up with her PCP. Should future signs arise, she can see me in outpatient cardiology follow-up. Would recommend a repeat resting echocardiogram an interval of 2 years due to findings of valve sclerosis without stenosis on echocardiogram. History of Present Illness Attending Physician: Heber Colon MD History of Present Illness Fátima Chase Is a 70-year-old female seen in cardiology consultation per the request of Pablo Will PA-C of the [facility] service for the evaluation of chest discomfort. The patient's primary care provider is Dr. Maria Ines Lentz. She does not follow with cardiology routine outpatient basis. Her past medical history is notable for CLL, on Willebrand's disease, dyslipidemia, and hypertension. She has a family history of heart disease in both of her parents including her father who suddenly at the age of 54 at [facility]. She presented to the emergency room yesterday with waxing and waning chest discomfort of several days duration.The discomfort had initiated with aerobic activity such as snow shoveling, but also waxed and waned for long intervals of hours at rest. Evening, she had an episode of discomfort after arriving to the telemetry floor, which was resolved taking Pepcid. During my initial interview with her this morning she was completely asymptomatic and feeling well. Allergies Allergy/AdvReac Type Severity Reaction Status Date / Time cat dander Allergy Intermediate ASTHMATIC Verified 05/06/20 15:10 SX Penicillins Allergy Intermediate RASH Verified 05/06/20 15:10 Home Medications Medication Instructions Recorded Confirmed Type omglmcak-[id number]-ihlm-[id number]-lutein 1 tab PO DAILY 06/26/18 05/06/20 History [Centrum Silver Women] alendronate 70 mg PO TH 06/27/18 05/06/20 History atorvastatin 10 mg PO HS 06/27/18 05/06/20 History coenzyme Q10 [CoQ-10] 100 mg PO DAILY 06/27/18 05/06/20 History acetaminophen [Tylenol Extra 500 mg PO Q6H PRN 05/06/20 05/06/20 History Strength] biotin 10 mg PO DAILY 05/06/20 05/06/20 History calcium carbonate-vitamin D3 1 cap PO DAILY 05/06/20 05/06/20 History [Calcium 600 + D(3)] Patient History Medical History CLL (chronic lymphocytic leukemia) HLD (hyperlipidemia) HTN (hypertension) Osteoporosis Von Willebrand disease per Dr. Swartz: Treatment recommendations for future bleeding: - DDAVP 0.3 microgram/kilogram over 30 minutes (she had received it the past with good response). - Amicar 2.5 g every 6 hourly (Can be added for oral bleed) - Humate P 40-50 IU/kg IV. Surgical History History of x2 History of cholecystectomy History of left breast biopsy History of tonsillectomy History of total abdominal hysterectomy and bilateral salpingo-oophorectomy History of wisdom tooth extraction Family History Father , 53- fatal [place] Myocardial infarction Mother , 93 CHF (congestive heart failure) Diabetes Daughter Von Willebrand disease Son Von Willebrand disease Social History Smoking Status: Never smoker Second Hand Exposure: No; Do You Dip or Chew Tobacco: No; Tobacco Cessation Education Requested by Patient: No Hx Alcohol Use: No Hx Substance Use: No Preferred Language: [place] Citizen Communication Ability: Effective Business Management Analyst Required: No Beliefs That Will Affect Care: None marital status: Current Living Situation: Family Other Information That Helps Us Care for You: No Feels Safe at Home: Yes Safety Concerns: Feels Safe At This Time Assistive Devices: Glasses Review of Systems Review of Systems: All systems reviewed & are unremarkable except as noted in HPI & below Physical Exam Physical Exam: Temp Pulse Resp BP Pulse Ox 36.8 C 68 18 149/79 H 99 05/07/20 08:19 05/07/20 08:19 05/07/20 08:19 05/07/20 08:19 05/07/20 08:19 Constitutional: WD/WN, vitals as above Respiratory: normal respiratory effort, lungs clear to auscultation Cardiovascular: Rate/Rhythm: regular rhythm Heart Sounds: + murmur (I/ systolic murmur) Vessels: no JVD Extremities: no edema Gastrointestinal (Abdomen): normal bowel sounds, soft, nontender, no hepatosplenomegaly Neurologic: PERRL, EOMI, accommodation nl, no face palsy, no dysarthria Results & Data ([facility]) Vital Signs (Past 12 Hours) Vital Signs Temp Pulse Pulse Resp BP Pulse Ox 05/07/20 08:19 36.8 C 68 18 149/79 H 99 05/07/20 07:40 67 05/07/20 05:09 36.7 C 69 16 158/80 H 95 05/07/20 00:00 37.3 C 71 18 159/82 H 96 Laboratory Results Cardiac Enzymes 05/06/20 05/06/20 05/07/20 Range/Units 15:10 21:07 02:49 AST 26 (15-37) U/L Troponin I < 0.015 < 0.015 < 0.015 (0-0.045) ng/ml Coagulation 05/06/20 Range/Units 15:10 PT 11.2 (9.0-12.0) Seconds APTT 29.2 (21.0-31.0) Seconds Lipids 05/07/20 Range/Units 02:49 Triglycerides 60 (0-150) mg/dl Cholesterol 156 (0-200) mg/dl HDL Cholesterol 51 mg/dl Cholesterol/HDL Ratio 3 CBC 05/06/20 05/07/20 Range/Units 15:10 02:49 WBC 24.64 H 22.88 H (4.8-10.8) K/uL RBC 5.06 4.71 (4.2-5.4) M/uL Hgb 15.6 14.4 (12.0-16.0) g/dL Hct 47.6 H 43.8 (37-47) % Plt Count 184 185 (130-400) K/uL Neut # (Auto) 2.80 (1.4-6.5) K/uL Lymph # (Auto) 21.10 H (1.2-3.4) K/uL [place] # (Auto) 0.57 (0.11-0.59) K/uL Eos # (Auto) 0.13 (0-0.5) K/uL Baso # (Auto) 0.02 (0-0.2) K/uL Comprehensive Metabolic Panel 05/06/20 05/07/20 Range/Units 15:10 02:49 Sodium 142 142 (136-145) mmol/L Potassium 4.3 4.2 (3.5-5.1) mmol/L Chloride 107 110 H (98-107) mmol/L Carbon Dioxide 29 29 (21-32) mmol/L BUN 23 H 21 H (7-18) mg/dl Creatinine 0.81 0.73 (0.6-1.2) mg/dl Glucose 91 86 (70-99) mg/dl Calcium 10.1 8.9 (8.5-10.1) mg/dl AST 26 (15-37) U/L ALT 32 (12-78) U/L Alkaline Phosphatase 100 (45-117) U/L Total Protein 7.3 (6.4-8.2) gm/dl Albumin 4.2 (3.4-5.0) gm/dl Intake and Output 05/06/20 05/07/20 05/07/20 22:59 06:59 14:59 Intake Total 150 / 150 Balance 150 / 150 Intake: Oral 150 / 150 Other: # Unmeasured Voids 2 Weight 72.4 kg 71.4 kg Weight Measurement Method Standing Scale Diagnostic Findings Resting EKG x2 reveals sinus rhythm with no significant ST changes. Troponin undetectable x3. (1) HLD (hyperlipidemia) Hyperlipidemia type: unspecified Qualified Code(s): E78.5 - Hyperlipidemia, unspecified (2) HTN (hypertension) Hypertension type: unspecified Qualified Code(s): I10 - Essential (primary) hypertension
[2020-05-07] MEDS ORDERED: amLODIPine BESYLATE 5 MG TAB PO SCH (11:45)
--- NOTE | 2020-05-07 12:42 | Hospitalist Progress Note ---
Date of Service May 07, 2020 Assessment & Plan (1) Atypical chest pain: Patient is a 70 yr female with H/O CLL, von Willebrand disease, HTN, HLD and osteoporosis who presents to ED secondary to off-and-on chest pain x1 week. Atypical Chest Pain: CXR:No acute cardiopulmonary abnormality. EKG no signs of ischemia Troponin negative Exercise Stress test: Low likelihood of underlying hemodynamically significant coronary artery disease Anxiety could be contributing Appreciate cardiology input Started on Pepcid for possible GERD Advised to get repeat stress testing 1 to 2 years given valve sclerosis (2) Anxiety as acute reaction to exceptional stress: Patient prefers to have counselling as outpatient (3) HTN (hypertension): Previously was on 5 mg of lisinopril as outpatient but discontinued secondary to hypotension Started on Amlodipine 2.5 mg daily (4) CLL (chronic lymphocytic leukemia): Chronic Leukocytosis Follows Dr. Swartz (5) HLD (hyperlipidemia): continue statin (6) Von Willebrand disease: follows Dr. Swartz, hx of significant bleeding post operatively SCDS/TEDS Code Status Full Code Disposition: Plan to discharge home today Admission and Anticipated Discharge Date Admission Date: May 06, 2020 Subjective Patient is seen and examined at bedside Had stress test earlier today Denies chest pain, shortness of breath, dizziness, nausea, abdominal pain Offers no other complaints Review of Systems Review of Systems: All systems reviewed & are unremarkable except as noted in HPI & below Physical Exam Physical Exam: Physical Exam: Vitals signs as noted above General Appearance:Moderately built and nourished, no apparent distress Head: normocephalic, Atraumatic Eyes: normal inspection, EOMI Neck: supple, Trachea midline Respiratory/Chest: Normal breath sounds, CTA, No accessory muscle use Cardiovascular: S1, S2, No murmur Abdomen/GI:Soft, Non tender, Bowel sounds present Extremities/Musculoskelatal:normal inspection, no edema Neurologic/Psych:AAOX3, grossly no focal neurological deficits Skin: normal color, warm Results & Data Results & Data ([facility]) Vital Signs (Past 12 Hours) Vital Signs Temp Pulse Pulse Resp BP Pulse Ox 05/07/20 08:19 36.8 C 68 18 149/79 H 99 05/07/20 07:40 67 05/07/20 05:09 36.7 C 69 16 158/80 H 95 Laboratory Results Short CBC 05/06/20 05/07/20 Range/Units 15:10 02:49 WBC 24.64 H 22.88 H (4.8-10.8) K/uL Hgb 15.6 14.4 (12.0-16.0) g/dL Hct 47.6 H 43.8 (37-47) % Plt Count 184 185 (130-400) K/uL BMP 05/06/20 05/07/20 15:10 02:49 Sodium 142 142 Potassium 4.3 4.2 Chloride 107 110 H Carbon Dioxide 29 29 BUN 23 H 21 H Creatinine 0.81 0.73 Glucose 91 86 Calcium 10.1 8.9 Cardiac Enzymes 05/06/20 05/06/20 05/07/20 Range/Units 15:10 21:07 02:49 Troponin I < 0.015 < 0.015 < 0.015 (0-0.045) ng/ml Liver Function 05/06/20 Range/Units 15:10 Total Bilirubin 0.9 (0.2-1) mg/dl AST 26 (15-37) U/L ALT 32 (12-78) U/L Alkaline Phosphatase 100 (45-117) U/L Albumin 4.2 (3.4-5.0) gm/dl (1) HLD (hyperlipidemia) Hyperlipidemia type: unspecified Qualified Code(s): E78.5 - Hyperlipidemia, unspecified (2) HTN (hypertension) Hypertension type: unspecified Qualified Code(s): I10 - Essential (primary) hypertension
--- NOTE | 2020-05-07 14:00 | Discharge Summary ---
Date of Service May 07, 2020 Admission HPI Per Admitting Provider This is a 70-year-old female who has significant past medical history CLL, von Willebrand disease, HTN, HLD and osteoporosis who presents to ED secondary to off-and-on chest pain x1 week. She was seen and evaluated in clinic today and due to complaint of chest pain as well as known family history of father with fatal IL in 50s she was referred to ED for further evaluation. She states she has been undergoing a lot of stress secondary to her friend undergoing numerous surgeries and now chemotherapy at [place] as well as stress with the coronavirus. Her first instance of chest pain was Saturday evening when she was lying in bed, pain was substernal, nonradiating, described as aching, improved with propping up head of bed, made worse with deep breathing, and lasted a few hours. When she woke up the next day her pain had resolved and did not return for approximately 2 to 3 days. She has noted over the past week when walking her dog she would get more short of breath than usual, but attributed this to th e cold weather. She also admits to a subtle substernal chest discomfort with walking as well, but would resolve immediately when sitting down. Yesterday she was outside shoveling a bit and felt more short of breath but no actual chest pain. Did not shovel much as she has Rast testing for allergies on back and was told not to sweat. She states last evening at approximately 9 PM when she was watching TV reclined back in her recliner the chest pain returned. It was the same chest pain and stayed for several hours. Due to return of chest pain she was seen and evaluated by PCP today. She is very concerned because her father of a fatal IL on and she found him . "I do not want my to find the same." She denies any other recent illness, fever, chills, sweats, lightheadedness, dizziness, syncope, shortness of breath at rest, palpitations, nausea, diaphoresis, cough, hemoptysis, diarrhea, abdominal pain, change in bowel or urinary habits. She notes over the past several weeks she has had significant increase in her anxiety and she wishes she could just, "grab a hold of it." She denies any prior history of heart disease. She does have history of high blood pressure and previously had been on lisinopril, but this dropped her blood pressure too low so she stopped it. She attributes her high blood pressure to whitecoat syndrome. Of significance patient does have history of von Willebrand disease. Her son and daughter have it as well. She has had significant bleeding issues with previous surgeries and follows with Dr. Swartz in regards to her von Willebrand and CLL. If she were to require surgery she states she will need to go to tertiary facility that have DDAVP and Humate-P. In ED patient made hemodynamically stable, although she was significantly hypertensive. This improved to 142/78 with 10 mg of IV labetalol. Her CBC was notable for leukocytosis, stable at 24.64k, with predominant lymphocytosis, BUN 23, creatinine 0.81, troponin WNL, D-dimer WNL. Chest x-ray negative for acute abnormality. Covid screen negative. She did receive GI cocktail which improved her symptoms immensely. Admission Exam Per Admitting Provider Physical Exam Physical Exam: Constitutional: WD/WN, vitals as above, NAD, sitting up in bed, pleasant, conversing easily Head: Normocephalic, Atraumatic Eyes: PERRL, conjunctivae normal, anicteric sclerae ENMT: external ear and nose normal, oropharynx normal Neck: trachea midline, no thyromegaly normal visual inspection Respiratory: normal respiratory effort, lungs clear to auscultation, no wheeze, rales, rhonchi. Normal insp/exp effort, no accessory muscle use Cardiovascular: RRR, 2/6 CHINEDU noted RUSB, no edema Vessels: no JVD or carotid bruit Chest: normal inspection of chest Abdomen: normal bowel sounds, soft, nontender, no hepatosplenomegaly Musculoskeletal: no cyanosis or clubbing, extremities motor strength 5/5 Skin: no rashes, warm and dry normal turgor Neurologic: PERRL, EOMI, accommodation nl, no face palsy, no dysarthria CN's II-XI intact bilaterally and moves all extremities Psychiatric: A+Ox3, euthymic affect Lymphatic: no cervical or axillary lymphadenopathy : deferred Principal Diagnosis Atypical Chest Pain Hypertension Mild Aortic Valve Sclerosis Discharge Data Allergies Allergy/AdvReac Type Severity Reaction Status Date / Time cat dander Allergy Intermediate ASTHMATIC Verified 05/06/20 15:10 SX Penicillins Allergy Intermediate RASH Verified 05/06/20 15:10 Consultations 05/06/20 16:50 ED Decision to Admit Stat 05/06/20 21:39 Consult Cardiology Routine Procedures Performed CXR:No acute cardiopulmonary abnormality. Stress Test: Normal exercise stress echocardiogram. No echocardiographic or ECG evidence of myocardial ischemia having achieved heart rate adequate for diagnostic purposes. No symptoms suggestive of angina were reported with exercise. Borderline hypertensive response to exercise was observed with peak blood pressure of 197/90 mmg Hg. mild equivocal inferior and lateral ST depression was observed late in the post-rest recovery interval with no associated symptoms. Hospital Course (1) Atypical chest pain: Patient is a 70 yr female with H/O CLL, von Willebrand disease, HTN, HLD and osteoporosis who presents to ED secondary to off-and-on chest pain x1 week. Atypical Chest Pain: CXR:No acute cardiopulmonary abnormality. EKG no signs of ischemia Troponin negative Exercise Stress test: Low likelihood of underlying hemodynamically significant coronary artery disease Anxiety could be contributing Appreciate cardiology input Started on Pepcid for possible GERD Advised to get repeat stress testing 1 to 2 years given valve sclerosis (2) Anxiety as acute reaction to exceptional stress: Patient prefers to have counselling as outpatient (3) HTN (hypertension): Previously was on 5 mg of lisinopril as outpatient but discontinued secondary to hypotension Started on Amlodipine 2.5 mg daily (4) CLL (chronic lymphocytic leukemia): Chronic Leukocytosis Follows Dr. Swartz (5) HLD (hyperlipidemia): continue statin (6) Von Willebrand disease: follows Dr. Swartz, hx of significant bleeding post operatively SCDS/TEDS Code Status Full Code Disposition: Plan to discharge home today Total Time Total Time Spent Total Time Spent (In Minutes): 35 minutes Total Time Includes: Examination of the Patient, Discharge Planning, Medication Reconciliation, Communication With Other Providers and Other Discharge Plan Discharge Items Patient Disposition: Home - Self-Care Reason For Visit: ATYPICAL CHEST PAIN Discharge Diagnosis: Atypical Chest Pain Hypertension Mild Aortic Valve Sclerosis Activity: Per Instructions section Exercise/Sports: Gradually increase as tolerated Non-emergency contact: Primary Care Provider and Community Service Manager Call non-emergency contact if: you have any medication questions, your symptoms worsen, your pain is not controlled, your pain is worsening, your pain is unusual for you, your pain is concerning for you and you have a fever Follow-up/Referrals: Holencik,Maria Ines M., DO [Primary Care Provider] - 05/10/20 2:20 pm (Please follow up with Dr. Lentz on Saturday05/10/2020 at 2:20 pm. Please arrive to the office 15 minutes early for your appointment. If you are unable to keep this appointment, please call the office to reschedule at [phone].) Diet: Heart Healthy Addtl Attending Provider Instructions: Follow up with your Primary Care Physician in 1 week asa dvised Follow up with your Community Service Manager as needed. Consider following with your psychiatrist/Psychologist to address anxiety as needed Get repeat Stress test in 1-2 years as recommended by your Community Service Manager Take medications regularly as recommended. Seek immediate medical attention if your symptoms reoccur or worsen Pending Studies at Discharge: No Stand-Alone Forms: My [employer], Smoking Cessation Medications and DC Order Prescriptions: New amlodipine [Norvasc] 5 mg Tablet 2.5 mg PO QAM Qty: 30 RF: 0 famotidine 20 mg Tablet 20 mg PO BID Qty: 60 RF: 1 Continued Centrum Silver Women 8 mg iron-400 mcg-300 mcg Tablet 1 tab PO DAILY RF: 0 alendronate 70 mg tablet 70 mg PO TH RF: 0 atorvastatin 10 mg tablet 10 mg PO HS RF: 0 coenzyme Q10 [CoQ-10] 100 mg Capsule 100 mg PO DAILY RF: 0 acetaminophen [Tylenol Extra Strength] 500 mg Tablet 500 mg PO Q6H PRN (Reason: Pain) RF: 0 Calcium 600 + D(3) 600 mg calcium- 200 unit Capsule 1 cap PO DAILY RF: 0 biotin 10 mg Tablet 10 mg PO DAILY RF: 0 Discharge Orders: Discharge Order (Routine); Ordered 05/07/20 Ordered By: Heber Winn/Other Patient Handouts: Tips to Control Acid Reflux, Discharge Instructions- Eating a ... Admission Data Admit Date/Time: 05/06/20 17:31 Attending Provider: Heber Colon Admit Provider: Kiko Monzon Primary Care Provider: Maria Ines Lentz Other Providers: Kiko Monzon ; Leo Sanchez Other Interventions: Discharge Summary Assessment (RN) Last Done: 05/07/20 14:01
== END 2020-05-07 14:42 | disposition home or self-care (01) ==
LOC: 2S 12:48 → ED 12:48 → SUATTDRO 17:31 → 2S 20:07